=== PATIENT | male | born 1940 | race Caucasian/White ===

== ENCOUNTER 2021-01-14 10:57 | Inpatient (IN) | payer OTHER ==
[2021-01-14 11:07] VITALS: BMI 28.3
[2021-01-14] MEDS ORDERED: ACETAMINOPHEN 500 MG TABLET (FP) PO ONE (11:21)
[2021-01-14] MEDS ORDERED: SODIUM CHLORIDE 0.9% 1000 ML INFUS.BAG IV ONE ×2 (11:25→12:52)
[2021-01-14] MEDS ORDERED: ACETAMINOPHEN 325 MG TABLET (FP) ONE (11:34)
[2021-01-14] MEDS ORDERED: MAG HYDROX/AL HYDROX/SIMETH -MYLANTA- ORAL SUSPENSION PO ONE (11:49)
[2021-01-14] MEDS ORDERED: FAMOTIDINE 20 MG/50 ML IVPB 20 MG in PREMIX 50 IVPB ONE (11:49)
[2021-01-14] MEDS ORDERED: FAMOTIDINE 20 MG/50 ML IVPB 20 MG/50 ML MG IVPB ONE (11:57)
[2021-01-14] MEDS ORDERED: MAG HYDROX/AL HYDROX/SIMETH 30 ML UNIT-DOSE CUP ONE (11:57)
[2021-01-14 12:05] LABS: BASO % 0.5 % (0-2.0); EOS % 0.3 % (0-4.5); HEMOGLOBIN 16.5 GM/dL (11.7-16.9); LYMPH % 6.8 % (8-40); MCH 29.9 pg (25.7-33.7); MCHC 35.1 g/dl (32.0-35.9); MEAN CELL VOLUME 85.1 fl (80-96); MEAN PLT VOLUME 7.9 fl (7.5-11.1); MONO % 7.6 % (3.8-10.2); NEUT % 84.8 % (42.8-82.8); PLATELET COUNT 199 10^3/uL (134-434); RBC 5.52 M/mm3 (4.00-5.60); RDW 13.9 % (11.9-15.9); WHITE BLOOD COUNT 10.5 K/mm3 (4.0-10.0)
[2021-01-14 12:27] LABS: CHLORIDE 105 mmol/L (98-107); SODIUM 140 mmol/L (136-145)
[2021-01-14 12:29] LABS: ALBUMIN 4.3 g/dl (3.4-5.0); ANION GAP 8 MMOL/L (8-16); CALCIUM 9.4 mg/dL (8.5-10.1); CO2 26 mmol/L (21-32)
[2021-01-14 12:30] LABS: BLOOD UREA NITROGEN 20.8 mg/dL (7-18); GLUCOSE,RANDOM 159 mg/dL (74-106)
[2021-01-14 12:32] LABS: CREATININE 1.3 mg/dL (0.55-1.3); SGOT/AST 538 U/L (15-37); SGPT/ALT 586 U/L (13-61)
[2021-01-14 12:34] LABS: BILIRUBIN,TOTAL 5.8 mg/dL (0.2-1); TOT PROT 7.6 g/dl (6.4-8.2)
[2021-01-14 12:35] LABS: ALK PHOS 143 U/L (45-117)
[2021-01-14 12:41] LABS: LIPASE 7538 U/L (73-393)
[2021-01-14] MEDS ORDERED: PHYTONADIONE 10 MG/1 ML AMP IVPB STA (13:42)
[2021-01-14] MEDS ORDERED: PHYTONADIONE 10 MG/1 ML AMP ONE (13:59)
[2021-01-14] MEDS ORDERED: LACTATED RINGERS SOLUTION 1,000 ML/1,000 ML INFUS.BAG IV SCH ×6 (14:00→21:38)
[2021-01-14] MEDS ORDERED: CEFAZOLIN 1 GM/D5W 2 GM/100 ML BAG ONE (15:10)
[2021-01-14] MEDS ORDERED: ceFAZolin 2 GRAM PREMIX BAG IVPB ONE (15:12)
[2021-01-14] MEDS ORDERED: IOHEXOL 300 MG/ML INFUS..BTL IJ ONE (15:20)
[2021-01-15] MEDS ORDERED: HYDROmorphone HCl 2 MG/ML VIAL IVPUSH PRN (00:35)
[2021-01-15] MEDS ORDERED: ACETAMINOPHEN 325 MG TABLET (FP) PO PRN (00:35)
[2021-01-15] MEDS ORDERED: LACTATED RINGERS SOLUTION 1,000 ML/1,000 ML INFUS.BAG IV SCH ×5 (02:00→09:38)
[2021-01-15 08:29] LABS: BASO % 0.4 % (0-2.0); EOS % 0.4 % (0-4.5); HEMATOCRIT 41.1 % (35.4-49); HEMOGLOBIN 14.5 GM/dL (11.7-16.9); LYMPH % 5.4 % (8-40); MCHC 35.2 g/dl (32.0-35.9); MEAN CELL VOLUME 85.1 fl (80-96); NEUT % 82.8 % (42.8-82.8); PLATELET COUNT 141 10^3/uL (134-434); RBC 4.83 M/mm3 (4.00-5.60); WHITE BLOOD COUNT 10.7 K/mm3 (4.0-10.0)
[2021-01-15] MEDS ORDERED: HYDROmorphone HCl 2 MG/ML VIAL IVPB PRN (08:38)
[2021-01-15 08:52] LABS: BLOOD UREA NITROGEN 19.8 mg/dL (7-18); CALCIUM 8.3 mg/dL (8.5-10.1)
[2021-01-15 08:53] LABS: LIPASE 706 U/L (73-393)
[2021-01-15 08:56] LABS: BILIRUBIN,TOTAL 4.9 mg/dL (0.2-1); CREATININE 1.2 mg/dL (0.55-1.3); TOT PROT 5.9 g/dl (6.4-8.2)
[2021-01-15 08:57] LABS: ALBUMIN 3.1 g/dl (3.4-5.0)
[2021-01-15] MEDS ORDERED: PANTOPRAZOLE SODIUM 40 MG VIAL IVPB SCH (10:00)
[2021-01-16] MEDS ORDERED: CEFTRIAXONE 1 GM in DEXTROSE 5%-WATER - 50 ML IVPB ONE (07:50)
[2021-01-16 08:33] LABS: BASO % 0.3 % (0-2.0); EOS % 0.9 % (0-4.5); HEMATOCRIT 41.9 % (35.4-49); HEMOGLOBIN 14.8 GM/dL (11.7-16.9); LYMPH % 8.6 % (8-40); MCHC 35.3 g/dl (32.0-35.9); MEAN CELL VOLUME 84.9 fl (80-96); MEAN PLT VOLUME 8.3 fl (7.5-11.1); MONO % 11.4 % (3.8-10.2); NEUT % 78.8 % (42.8-82.8); PLATELET COUNT 155 10^3/uL (134-434); RBC 4.93 M/mm3 (4.00-5.60); RDW 13.8 % (11.9-15.9); WHITE BLOOD COUNT 9.7 K/mm3 (4.0-10.0)
[2021-01-16] MEDS ORDERED: cefTRIAXone SODIUM 1 GM VIAL ONE (08:39)
[2021-01-16] MEDS ORDERED: DEXTROSE 5%-WATER - 50 ML IVPB ONE (08:40)
[2021-01-16 08:57] LABS: CALCIUM 8.6 mg/dL (8.5-10.1)
[2021-01-16 08:58] LABS: ALBUMIN 3.3 g/dl (3.4-5.0); BLOOD UREA NITROGEN 18.8 mg/dL (7-18)
[2021-01-16 09:02] LABS: BILIRUBIN,TOTAL 2.7 mg/dL (0.2-1); TOT PROT 6.5 g/dl (6.4-8.2)
[2021-01-16] MEDS: D5-1/4NS+20 MEQ KCL - 20 MEQ/1,000 ML INFUS.BAG IV SCH (09:42)
[2021-01-16] MEDS ORDERED: POLYETHYLENE GLYCOL (HEALTHYLAX) 3350 17 GM PACKET PO SCH (10:00)
[2021-01-17 09:44] LABS: BASO % 0.5 % (0-2.0); EOS % 1.7 % (0-4.5); HEMATOCRIT 44.5 % (35.4-49); HEMOGLOBIN 15.4 GM/dL (11.7-16.9); LYMPH % 14.7 % (8-40); MCH 29.5 pg (25.7-33.7); MCHC 34.5 g/dl (32.0-35.9); MEAN CELL VOLUME 85.5 fl (80-96); NEUT % 70.1 % (42.8-82.8); PLATELET COUNT 176 10^3/uL (134-434); RDW 14.2 % (11.9-15.9); WHITE BLOOD COUNT 6.6 K/mm3 (4.0-10.0)
[2021-01-17] MEDS ORDERED: CEFTRIAXONE 1 GM in DEXTROSE 5%-WATER - 50 ML IVPB SCH (10:00)
[2021-01-17] MEDS ORDERED: POLYETHYLENE GLYCOL (HEALTHYLAX) 3350 17 GM PACKET PO SCH (10:00)
[2021-01-17 10:41] LABS: ALBUMIN 3.5 g/dl (3.4-5.0); BLOOD UREA NITROGEN 15.9 mg/dL (7-18)
[2021-01-17 10:44] LABS: CALCIUM 8.7 mg/dL (8.5-10.1)
[2021-01-17 10:45] LABS: BILIRUBIN,TOTAL 1.7 mg/dL (0.2-1); TOT PROT 7.1 g/dl (6.4-8.2)
[2021-01-17] MEDS ORDERED: cefTRIAXone SODIUM 1 GM VIAL ONE (10:46)
[2021-01-17] MEDS ORDERED: DEXTROSE 5%-WATER - 50 ML IVPB ONE (10:46)
[2021-01-17] MEDS: D5-1/4NS+20 MEQ KCL - 20 MEQ/1,000 ML INFUS.BAG IV SCH (10:53)
[2021-01-17 14:53] VITALS: BP 154/90; PULSE 94; TEMP 98.3
== END 2021-01-17 15:36 | disposition home or self-care (01) | DRG 440 ==
LOC: JER 10:57 → JERBED 13:40 → J8W 17:16
PROVIDERS: ADMIT Family Medicine; ATTEND Family Medicine
PROC: 0F798DZ Dilation of Common Bile Duct with Intraluminal Device, Via Natural or Artificial Opening Endoscopic (ICD-10-PCS; 2021-01-14)
PROC: 0FC98ZZ Extirpation of Matter from Common Bile Duct, Via Natural or Artificial Opening Endoscopic (ICD-10-PCS; principal; 2021-01-14 15:15)
DX: K85.10 Biliary acute pancreatitis without necrosis or infection (principal); K80.50 Calculus of bile duct without cholangitis or cholecystitis without obstruction; R73.03 Prediabetes; M79.2 Neuralgia and neuritis, unspecified; K59.03 Drug induced constipation; T40.2X5A Adverse effect of other opioids, initial encounter; Z90.49 Acquired absence of other specified parts of digestive tract; Z87.19 Personal history of other diseases of the digestive system
CPT/HCPCS: 36415; 71045-TC-FY; 74177-TC; 76000-TC-FY; 80048; 80053; 82550; 83605; 83690; 84484; 85025; 86140; 87040; 93005; 93010; 99285-25; C9803; U0003; U0005

== ENCOUNTER 2021-04-15 04:56 | Day surgery (SDC) | payer OTHER ==
[2021-04-13 12:52] VITALS: BMI 28.3
[2021-04-15] MEDS ORDERED: ACETAMINOPHEN INJECTION 100 ML IVPB ONE (08:09)
[2021-04-15] MEDS ORDERED: ceFAZolin SODIUM 1 GM VIAL ONE (08:38)
[2021-04-15] MEDS ORDERED: IOHEXOL 300 MG/ML INFUS..BTL IV ONE (08:59)
[2021-04-15 09:34] VITALS: TEMP 98
[2021-04-15 10:36] VITALS: BP 144/66; PULSE 71
== END 2021-04-15 12:55 | disposition home or self-care (01) ==
LOC: JASU-ENDO 04:56
PROVIDERS: ATTEND Internal Medicine Gastroenterology
PROC: 0F798ZZ Dilation of Common Bile Duct, Via Natural or Artificial Opening Endoscopic (ICD-10-PCS; 2021-04-15)
PROC: 0FC98ZZ Extirpation of Matter from Common Bile Duct, Via Natural or Artificial Opening Endoscopic (ICD-10-PCS; 2021-04-15)
PROC: BF11YZZ Fluoroscopy of Biliary and Pancreatic Ducts using Other Contrast (ICD-10-PCS; 2021-04-15)
PROC: 0FPB8DZ Removal of Intraluminal Device from Hepatobiliary Duct, Via Natural or Artificial Opening Endoscopic (ICD-10-PCS; principal; 2021-04-15 07:30)
DX: Z46.59 Encounter for fitting and adjustment of other gastrointestinal appliance and device (principal); K80.50 Calculus of bile duct without cholangitis or cholecystitis without obstruction; K57.90 Diverticulosis of intestine, part unspecified, without perforation or abscess without bleeding; E11.9 Type 2 diabetes mellitus without complications; Z79.84 Long term (current) use of oral hypoglycemic drugs
CPT/HCPCS: 74330-TC; 76000-TC-FY; 82962; 88300-TC